=== PATIENT | female | born 1980 | race Caucasian/White ===

== ENCOUNTER 2017-03-02 20:45 | Emergency (ER) | payer BC, OTHER ==
[~2017-03-02 20:45] MED LIST: Sodium Chloride Irrig Solution 250 ML BOT ONE
[2017-03-02] MEDS ORDERED: Lidocaine 1% 20 ML MDV ONE (21:02)
[2017-03-02] MEDS ORDERED: Adacel (T-DAP) 0.5 ML VIAL ONE (21:09)
== END 2017-03-02 22:23 | disposition home or self-care (01) ==
LOC: MADERS 20:45
DX: S61.235A Puncture wound without foreign body of left ring finger without damage to nail, initial encounter (principal); M06.9 Rheumatoid arthritis, unspecified; W45.8XXA Other foreign body or object entering through skin, initial encounter
CPT/HCPCS: 90471; 90715; J2001

== ENCOUNTER 2025-03-05 20:59 | Emergency (ER) | payer BC ==
[~2025-03-05 20:59] MED LIST changes: +Iopamidol 370 76% 100 ML VIAL ONE; -Sodium Chloride Irrig Solution 250 ML BOT ONE
[2025-03-05 21:31] LABS: Hematocrit 42.3 % (36.0-47.0); Hemoglobin 13.7 g/dL (12.0-16.0); Mean Corpuscular Hemoglobin 29.0 pg (27.0-31.0); Mean Corpuscular Volume 89.3 fl (78.0-98.0); Platelet Count 231 10x3/uL (130-400); Red Blood Cell (RBC) Count 4.73 mill/uL (4.20-5.40); White Blood Cell (WBC) Count 8.2 10x3/uL (4.8-10.8)
[2025-03-05 21:34] LABS: MDiff Complete? YES
[2025-03-05 21:40] LABS: BHCG - Serum Negative (NEGATIVE); Pregs Control Background? CLEAR/WHITE (CLR/WHITE); Pregs Control Bar Appear? YES (CONTROL BAR)
[2025-03-05 21:52] LABS: ALT (SGPT) 79 U/L (Less than 34); AST (SGOT) 67 U/L (11-34); Albumin 4.6 g/dL (3.1-4.5); Alkaline Phosphatase 51 U/L (40-110); Anion Gap 15 mmol/L (10-20); BUN (Urea Nitrogen) 15 mg/dL (7.0-18.7); Bilirubin, Total 0.5 mg/dL (0.3-1.2); Calc. Creatinine Clearance 0 mL/min (70-130); Calcium 9.6 mg/dL (7.8-10.44); Carbon Dioxide 26 mmol/L (22-29); Chloride 105 mmol/L (98-107); Globulin 2.7 g/dL (2.4-3.5); Glucose 100 mg/dL (70-105); Lipase 29 U/L (8-78); Potassium 3.9 mmol/L (3.5-5.1); Sodium 142 mmol/L (136-145)
[2025-03-05 21:58] LABS: Troponin I Less than 0.010 ng/mL (< 0.028)
[2025-03-05] MEDS ORDERED: Mag-Al 1200 mg/1200 mg/30 ML UDCUP ONE (22:16)
[2025-03-05] MEDS ORDERED: Lidocaine Viscous Sol 2% 15 ml UD Cup ONE (22:17)
[2025-03-05] MEDS ORDERED: Ondansetron PF 4 MG/2 ML Vial ONE (22:17)
== END 2025-03-05 23:04 | disposition home or self-care (01) ==
LOC: MADERS 20:59
DX: R10.13 Epigastric pain (principal); R11.2 Nausea with vomiting, unspecified
CPT/HCPCS: 74177; 80053; 83690; 84484; 84703; 85025; 93005; 96374; J2405; J7030; Q9967